=== PATIENT | male | born 1980 | race Caucasian/White ===

== ENCOUNTER 2017-02-27 19:12 | Emergency (ER) | payer SELFPAY ==
[2017-02-27 19:12] VITALS: BMI 107.6
--- NOTE | 2017-02-27 20:19 | C.PDOC ---
History Of Present Illness 36 y/o male presents to the ED with complaints of right knee pain for the past several months, worsening over the past few days with swelling. Denies injury. No weakness, numbness or any other complaints. Time Seen by Provider: 02/27/17 19:28 Chief Complaint (Nursing): Lower Extremity Problem/Injury History Per: Patient History/Exam Limitations: no limitations Onset/Duration Of Symptoms: Days Current Symptoms Are (Timing): Worse Recent travel outside of the [place]: No Past Medical History Reviewed: Historical Data, Nursing Documentation, Vital Signs Vital Signs: Last Vital Signs Temp 98 F 02/27/17 19:14 Pulse 66 02/27/17 19:14 Resp 18 02/27/17 19:14 BP 120/74 02/27/17 19:14 Pulse Ox 98 02/27/17 20:56 Family History: States: Unknown Family Hx - Social History Hx Tobacco Use: Yes Hx Alcohol Use: Yes Hx Substance Use: No - Immunization History Hx Tetanus Toxoid Vaccination: No Hx Influenza Vaccination: No Hx Pneumococcal Vaccination: No Review Of Systems Musculoskeletal: Positive for: Other (right knee pain) Neurological: Negative for: Weakness, Numbness Physical Exam - Physical Exam Appears: Non-toxic, No Acute Distress Skin: Warm, Dry, No Rash Head: Atraumatic, Normacephalic Extremity: Normal ROM, Capillary Refill (<2 seconds), No Deformity, Other ( diffuse swelling and tenderness to right knee. no warmth or erythema) Neurological/Psych: Oriented x3, Normal Speech, Normal Motor, Normal Sensation ED Course And Treatment O2 Sat by Pulse Oximetry: 98 (room air) Pulse Ox Interpretation: Normal Medical Decision Making Medical Decision Making: XR right knee shows degenerative joint disease. Knee brace applied by Tech, and patient discharged with referral to ortho. Disposition - Disposition Disposition: HOME/ ROUTINE Disposition Time: 20:48 Condition: STABLE Additional Instructions: Follow up with PMD and Orthopedist within 1-2 days. Return to ED if feel worse. 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 - Scribe Statement The provider has reviewed the documentation as recorded by the Sanjayibbee gonzáles All medical record entries made by the Scribe were at my direction and personally dictated by me. I have reviewed the chart and agree that the record accurately reflects my personal performance of the history, physical exam, medical decision making, and the department course for this patient. I have also personally directed, reviewed, and agree with the discharge instructions and disposition.
--- NOTE | 2017-02-28 09:48 | RAD ---
PROCEDURE: Right Knee Radiographs. HISTORY: pain/swelling COMPARISON: None. FINDINGS: BONES: Normal. No fracture. JOINTS: Tije-af-szljseae osteoarthritic changes. JOINT EFFUSION: There is suprapatellar joint effusion. OTHER FINDINGS: None. IMPRESSION: No evidence of acute fracture or dislocation. Osteoarthritic changes. Suprapatellar joint effusion.
[2017-02-28 12:05] VITALS: BP 120/74; PULSE 66; RESP 18; TEMP 98; O2SAT 98
== END 2017-02-27 21:04 | disposition home or self-care (01) ==
LOC: C.ER 19:12
DX: M25.561 Pain in right knee (principal)

== ENCOUNTER 2018-02-06 15:04 | Emergency (ER) | payer OTHER ==
[2018-02-06 15:19] VITALS: BMI 27.6
[2018-02-06 17:07] VITALS: BP 150/80; PULSE 76; RESP 18; TEMP 98.9; O2SAT 97
--- NOTE | 2018-02-06 17:41 | RAD ---
PROCEDURE: Radiographs of the right tibia and fibula. HISTORY: TRAUMA TO RIGHT LOWER LEG COMPARISON: None available. TECHNIQUE: Frontal and lateral views obtained. FINDINGS: BONES: There is an acute comminuted nondisplaced fracture in the proximal mid diaphysis of the fibula. No significant angulation. Bone alignment and mineralization are normal. JOINT SPACES: Unremarkable. OTHER FINDINGS: None. IMPRESSION: Acute comminuted nondisplaced fracture in the proximal metaphysis of fibula. No dislocation.
--- NOTE | 2018-02-06 17:43 | RAD ---
PROCEDURE: Right Knee Radiographs. HISTORY: r/o fx COMPARISON: None. FINDINGS: BONES: Bone alignment and mineralization are normal. There is an acute comminuted nondisplaced fracture in the proximal metaphysis of fibula. JOINTS: There is mild tricompartmental degenerative osteoarthrosis, worse in the medial compartment with reduced joint spaces, marginal osteophytes and tibial spiking. JOINT EFFUSION: None. OTHER FINDINGS: None. IMPRESSION: Acute comminuted nondisplaced fracture in the proximal metaphysis of fibula. No dislocation.
--- NOTE | 2018-02-06 17:45 | RAD ---
PROCEDURE: Right Ankle Radiographs. HISTORY: r/o fx COMPARISON: None FINDINGS: BONES: Bone alignment and mineralization are normal. There is an avulsion fracture in the lateral aspect of the distal epiphysis of tibia. JOINTS: Ankle mortise maintained. Talar dome intact there is a small joint effusion. SOFT TISSUES: There is moderate periarticular soft tissue swelling. OTHER FINDINGS: None. IMPRESSION: Avulsion fracture in the lateral aspect of the distal epiphysis of tibia. Small joint effusion and moderate periarticular soft tissue swelling.
--- NOTE | 2018-02-06 18:23 | C.PDOC ---
History Of Present Illness 37 year old male presents to the ED complaining of right ankle pain and knee pain for 6 days. States that he was running and everted his ankle while running. Hes been able to ambulate with a limp. The most pain is localized to ankle and knee areas. No changes in sensation or extremity weakness. Time Seen by Provider: 02/06/18 15:33 Chief Complaint (Nursing): Lower Extremity Problem/Injury History Per: Patient History/Exam Limitations: no limitations Onset/Duration Of Symptoms: Days Current Symptoms Are (Timing): Still Present Past Medical History Reviewed: Historical Data, Nursing Documentation, Vital Signs Vital Signs: Last Vital Signs Temp 98.9 F 02/06/18 17:06 Pulse 76 02/06/18 17:06 Resp 18 02/06/18 17:06 BP 150/80 02/06/18 17:06 Pulse Ox 97 02/06/18 18:31 - Medical History PMH: No Chronic Diseases Family History: States: Unknown Family Hx - Social History Hx Tobacco Use: Yes Hx Alcohol Use: No Hx Substance Use: No - Immunization History Hx Tetanus Toxoid Vaccination: No Hx Influenza Vaccination: No Hx Pneumococcal Vaccination: No Review Of Systems Except As Marked, All Systems Reviewed And Found Negative. Musculoskeletal: Positive for: Leg Pain (right knee pain), Foot Pain (right ankle) Neurological: Negative for: Weakness, Numbness Physical Exam - Physical Exam Appears: Non-toxic, No Acute Distress Skin: Normal Color, Warm, Dry Head: Atraumatic, Normacephalic Eye(s): bilateral: Normal Inspection, PERRL, EOMI Oral Mucosa: Moist Neck: Normal ROM, Supple Chest: Symmetrical Cardiovascular: Rhythm Regular, No Murmur Respiratory: Normal Breath Sounds, No Rales, No Rhonchi, No Wheezing Extremity: Tenderness (Mild tenderness to fibular head, with diffuse tenderness to the right ankle), No Deformity, Swelling (marked swelling over right ankle), Other (Decreased ROM of right ankle) Pulses: Left Dorsalis Pedis: Normal, Right Dorsalis Pedis: Normal Neurological/Psych: Oriented x3, Normal Speech, Normal Cranial Nerves, Normal Motor, Normal Sensation ED Course And Treatment O2 Sat by Pulse Oximetry: 97 (RA) Pulse Ox Interpretation: Normal - Other Rad x-ray right knee X-Ray: Viewed By Me, Read By Radiologist Interpretation: Accession No. : [id number]. Patient Name / ID : ECHO MADRIGAL / [id number]. Exam Date : 02/06/2018 15:39:41 ( Approved ). Study Comment : Sex / Age : M / 37Y. Creator : Yanci Rod MD. Dictator : Yanci Rod MD. Riding Teacher : Scratch Finisher : Yanci Rod MD. Approver2 : Report Date : 02/06/2018 17:41:18. My Comment : . PROCEDURE: Right Knee Radiographs. HISTORY: r/o fx. COMPARISON: None. FINDINGS: BONES: Bone alignment and mineralization are normal. There is an acute comminuted nondisplaced fracture in the proximal metaphysis of fibula. JOINTS: There is mild tricompartmental degenerative osteoarthrosis, worse in the medial compartment with reduced joint spaces, marginal osteophytes and tibial spiking. JOINT EFFUSION: None. OTHER FINDINGS: None. IMPRESSION: Acute comminuted nondisplaced fracture in the proximal metaphysis of fibula. No dislocation. x-ray right ankle X-Ray: Viewed By Me, Read By Radiologist Interpretation: Accession No. : [id number]. Patient Name / ID : ECHO MADRIGAL / [id number]. Exam Date : 02/06/2018 15:39:30 ( Approved ). Study Comment : Sex / Age : M / 37Y. Creator : Yanci Rod MD. Dictator : Yanci Rod MD. Riding Teacher : Scratch Finisher : Yanci Rod MD. Approver2 : Report Date : 02/06/2018 17:44:02. My Comment : . PROCEDURE: Right Ankle Radiographs. HISTORY: r/o fx. COMPARISON: None. FINDINGS: BONES: Bone alignment and mineralization are normal. There is an avulsion fracture in the lateral aspect of the distal epiphysis of tibia. JOINTS: Ankle mortise maintained. Talar dome intact there is a small joint effusion. SOFT TISSUES: There is moderate periarticular soft tissue swelling. OTHER FINDINGS: None. IMPRESSION: Avulsion fracture in the lateral aspect of the distal epiphysis of tibia. Small joint effusion and moderate periarticular soft tissue swelling. x-ray right tib/fib X-Ray: Viewed By Me, Read By Radiologist Interpretation: Accession No. : [id number]. Patient Name / ID : ECHO MADRIGAL / [id number]. Exam Date : 02/06/2018 15:45:36 ( Approved ). Study Comment : Sex / Age : M / 37Y. Creator : Yanci Rod MD. Dictator : Yanci Rod MD. Riding Teacher : Scratch Finisher : Yanci Rod MD. Approver2 : Report Date : 02/06/2018 17:40:07. My Comment : . PROCEDURE: Radiographs of the right tibia and fibula. HISTORY: TRAUMA TO RIGHT LOWER LEG. COMPARISON: None available. TECHNIQUE: Frontal and lateral views obtained. FINDINGS: BONES: There is an acute comminuted nondisplaced fracture in the proximal mid diaphysis of the fibula. No significant angulation. Bone alignment and mineralization are normal. JOINT SPACES: Unremarkable. OTHER FINDINGS: None. IMPRESSION: Acute comminuted nondisplaced fracture in the proximal metaphysis of fibula. No dislocation. Medical Decision Making Medical Decision Making: Initial Impression: 37 y/o M with right ankle and knee pain Time: 15:37 Initial Plan: --Tylenol 650 mg PO --Tramadol 50 mg PO --X-Ray Right Knee --X-Ray Right Tib/fib --X-Ray Right Ankle Progress/Updates: X-Ray shows proximal fibular fracture. Patient placed in along posterior splint. Instructed on crutches. Advised to follow up with ortho in 2 days. Disposition Counseled Patient/Family Regarding: Studies Performed, Diagnosis, Need For Followup, Rx Given - Disposition Referrals: Nany Reed MD [Staff Provider] - Disposition: HOME/ ROUTINE Disposition Time: 16:10 Condition: GOOD Additional Instructions: [address], thank you for letting us take care of you today. Your provider was Nuno Abbott DO and you were treated for LEG PAIN/FALL. The emergency medical care you received today was directed at your acute symptoms. If you were prescribed any medication, please fill it and take as directed. It may take several days for your symptoms to resolve. Return to the Emergency Department if your symptoms worsen, do not improve, or if you have any other problems. Please contact your doctor or call one of the physicians/clinics you have been referred to that are listed on the Patient Visit Information form that is included in your discharge packet. Bring any paperwork you were given at discharge with you along with any medications you are taking to your follow up visit. Our treatment cannot replace ongoing medical care by a primary care provider outside of the emergency department. Thank you for allowing the [facility] team to be part of your care today. DO NOT PUT ANY WEIGHT ON YOUR RIGHT LEG. KEEP SPLINT CLEAN AND DRY AT ALL TIMES. Follow up with Dr. Reed, orthopedics, in 2 days for re-evaluation and further management. Prescriptions: Ibuprofen [Motrin] 600 mg PO Q6 PRN #20 tab PRN Reason: Pain, Moderate (4-7) Instructions: How to Use Crutches, Fibula Fracture (DC), Going Up and Down Curbs or Stairs With a Walker or Crutches Forms: [employer] ([employer]) - POA Present On Arrival: None - Clinical Impression Clinical Impression: Closed right fibular fracture - Scribe Statement The provider has reviewed the documentation as recorded by the Scribe (Catalina Castelan) Provider Attestation: All medical record entries made by the Scribe were at my direction and personally dictated by me. I have reviewed the chart and agree that the record accurately reflects my personal performance of the history, physical exam, medical decision making, and the department course for this patient. I have also personally directed, reviewed, and agree with the discharge instructions and disposition.
== END 2018-02-06 17:12 | disposition home or self-care (01) ==
LOC: C.ER 15:04
DX: S82.491A Other fracture of shaft of right fibula, initial encounter for closed fracture (principal); X50.1XXA Overexertion from prolonged static or awkward postures, initial encounter; Y93.02 Activity, running; Y92.830 Public park as the place of occurrence of the external cause